=== PATIENT | female | born 1955 | race Caucasian/White ===

== ENCOUNTER → 2016-10-14 | Outpatient (CLI) | payer OTHER ==
[~2016-10-14] MED LIST: CLON1TAB3 PO; CYAN100020 SL; DOXY25TA PO; GLC5 PO; LEVO1TAB PO; LIDO4GEL3 TD; SERT1TAB71 PO; VTMD1000 PO; ZINC50TA3 PO
[2016-10-14 12:53] LABS: URINE APPEARANCE CLOUDY (CLEAR); URINE BILIRUBIN NEG (NEG); URINE COLOR YELLOW; URINE EPITHELIAL CELL AUTO >30 /lpf (0-5); URINE NITRITE NEG (NEG); URINE SPECIFIC GRAVITY 1.019 (1.000-1.030); UROBILINOGEN NEG (NEG); ZZUR CULT IF INDIC CLEAN CATCH NO
[2016-10-14 12:56] LABS: MANUAL MICROSCOPIC REQUIRED? NO; REVIEW REQ? NO
[2016-10-14 12:57] LABS: ALT/SGPT 38 U/L (12-78); AST/SGOT 36 U/L (15-37); BLOOD UREA NITROGEN 10 mg/dl (7-18); BUN/CREATININE RATIO 13.2 (10-20); CALCIUM 9.4 mg/dl (8.5-10.1); CARBON DIOXIDE 21 mmol/L (21-32); CHLORIDE 105 mmol/L (98-107); CHOLESTEROL 169 mg/dl (0-200); CREATININE 0.74 mg/dl (0.60-1.20); GLUCOSE 131 mg/dl (70-99); POTASSIUM 4.2 mmol/L (3.5-5.1); SODIUM 140 mmol/L (136-145)
[2016-10-14 13:07] LABS: ALB/GLOB RATIO 0.8 (0.9-2); ALKALINE PHOSPHATASE 74 U/L (45-117); CHOLESTEROL/HDL RATIO 3.7; HDL CHOLESTEROL 46 mg/dl; LDL CHOLESTEROL CALCULATED 97 mg/dl; TRIGLYCERIDES 129 mg/dl (0-150); VERY LOW DENSITY LIPOPROT CALC 26 mg/dl
[2016-10-14 13:36] LABS: RATIO 6.4 mcg/mg (0-30.0)
[2016-10-14 13:54] LABS: ESTIMATED AVERAGE GLUCOSE 140 mg/dl; HA1C FLAG Normal (Normal)
== END | disposition home or self-care (01) ==
LOC: C.LABBFT 11:13
PROVIDERS: ATTEND Internal Medicine
DX: E11.65 Type 2 diabetes mellitus with hyperglycemia (principal); E03.9 Hypothyroidism, unspecified

== ENCOUNTER → 2016-12-02 | Outpatient (CLI) | payer OTHER ==
--- NOTE | 2016-12-02 15:44 | MAMMOGRAPHY REPORT ---
BILATERAL DIGITAL DIAGNOSTIC MAMMOGRAM TOMOSYNTHESIS WITH CAD AND TARGETED RIGHT ULTRASOUND: 7 CLINICAL HISTORY: 61-year-old woman who presented with pain with palpation in the lateral right [address]. She describes a "stringy" feeling to the tissue. Family history of breast cancer = maternal au nt. Also due for annual bilateral screening mammography. TECHNIQUE: Bilateral CC and MLO to the digital and tomosynthesis images, spot magnification right CC , ML and spot compression left MLO tomosynthesis images were obtained. Current study was also evalu ated with a Computer Aided Detection (CAD) system. COMPARISON: Comparison is made to exam dated: 01/02/2014 mammogram - [facility] [place]. BREAST COMPOSITION: There are scattered areas of fibroglandular density in both breasts. FINDINGS: A square-shaped marker was placed overlying the upper outer posterior right breast, denoti ng the area of pain pointed out by the patient. There is no obvious mass, architectural distortion or suspicious calcifications in the area of concern. There are a few benign rim calcifications scat tered in the breast. However, there is a possible new clustered microcalcifications in the upper ou ter quadrant of the right breast, for which additional spot magnification views were obtained. On t he spot magnification views, there are round and punctate loosely grouped microcalcifications that m ost likely represent benign fibrocystic changes. The larger round calcifications are stable compari ng to the 2013 exam. However, the fainter calcifications are increased in conspicuity and a short i nterval follow-up diagnostic mammogram is recommended to ensure stability in 6 months. No other obv ious mass, focal area of architectural distortion or suspicious microcalcifications are identified i n the right breast. There is questionable architectural distortion in the anterior left breast, along the posterior nipp le line on the MLO view for which an additional spot compression left MLO tomosynthesis view was obt ained. The questionable distortion effaces with this additional view and most likely represented ov erlapping fibrolinear markings. Targeted ultrasound was performed in the area of pain pointed out by the patient, within the 8:00, 9 :00, 10:00 and 11:00 axes of the right breast. Throughout the area of concern, normal fibroglandula r tissue is seen without a discrete solid or cystic mass. In the left retroareolar breast, 2:00 to 4:00 and 8:00 through 10:00 axes, normal fibroglandular tissue is seen without a discrete solid or c ystic mass. IMPRESSION: ACR-BI-RADS CATEGORY 3: PROBABLY BENIGN, TARGETED ULTRASOUND ACR-BI-RADS CATEGORY 3: MI OBABLY BENIGN 1. There is no suspicious mammographic or targeted sonographic abnormality to explain the right lat eral nonfocal mastalgia. Therefore, clinical follow-up is recommended. 2. There are 2 loose groupings of round and punctate microcalcifications in the upper outer quadran t of the right breast, some of which are increased in conspicuity compared to the 01/02/2014 mammogr ams. Although these microcalcifications could represent benign fibrocystic changes, a short interva l follow-up diagnostic mammogram including spot magnification views is recommended to ensure stabili ty in 6 months. 3. Questionable architectural distortion in the anterior left breast effaces with an additional spo t compression tomosynthesis view and there is no suspicious sonographic correlate. This most likely represented normal overlapping fibrolinear markings. These results and recommendations were discussed with the patient at the time of the exam. Approximately 10% of breast cancers are not detected with mammography. A negative mammographic repor t should not delay biopsy if a clinically suggestive mass is present. Arleen Balbuena M.D. ay/:12/02/2016 14:46:39 Budget And Policy Analyst: Kia RUIZ(R)(M), [facility] [place] letter sent: Follow Up Recommended 3 BI-RADS Code: ACR-BI-RADS Category 3: Probably Benign Ultrasound BI-RADS: ACR-BI-RADS Category 3: P robably Benign
== END | disposition home or self-care (01) ==
LOC: C.MAMM 08:57
PROVIDERS: ATTEND Physician Assistant Medical
DX: N64.4 Mastodynia (principal); R92.0 Mammographic microcalcification found on diagnostic imaging of breast

== ENCOUNTER → 2016-12-29 | Outpatient (CLI) | payer OTHER ==
[2016-12-29 17:24] LABS: BASO % 1.1 %; BASO ABS # 0.07 K/uL (0-0.2); COMPLETE YES; EOS % 4.5 %; HEMATOCRIT 41.9 % (37-47); IG% 0.2 %; LYMPH % 33.9 %; LYMPH ABS # 2.11 K/uL (1.2-3.4); MEAN CELL VOLUME 90.7 fL (80-100); MEAN CORPUSCULAR HGB CONC 34.1 g/dl (32-36); MEAN PLATELET VOLUME 10.2 fL (7.4-10.4); MONO % 5.5 %; NEUT % 54.8 %; PLATELET COUNT 255 K/uL (130-400); RED BLOOD COUNT 4.62 M/uL (4.2-5.4); WHITE BLOOD COUNT 6.22 K/uL (4.8-10.8)
[2016-12-29 17:45] LABS: ALT/SGPT 29 U/L (12-78); AST/SGOT 21 U/L (15-37); BLOOD UREA NITROGEN 9 mg/dl (7-18); BUN/CREATININE RATIO 12.5 (10-20); CALCIUM 8.9 mg/dl (8.5-10.1); CARBON DIOXIDE 25 mmol/L (21-32); CHLORIDE 106 mmol/L (98-107); CREATININE 0.73 mg/dl (0.60-1.20); GLUCOSE 152 mg/dl (70-99); POTASSIUM 4.1 mmol/L (3.5-5.1); SODIUM 140 mmol/L (136-145)
[2016-12-29 17:54] LABS: ALB/GLOB RATIO 0.8 (0.9-2); ALKALINE PHOSPHATASE 77 U/L (45-117); CHOLESTEROL 174 mg/dl (0-200); CHOLESTEROL/HDL RATIO 3.3; HDL CHOLESTEROL 53 mg/dl; LDL CHOLESTEROL CALCULATED 100 mg/dl; TRIGLYCERIDES 105 mg/dl (0-150); VERY LOW DENSITY LIPOPROT CALC 21 mg/dl
[2016-12-30 06:09] LABS: ESTIMATED AVERAGE GLUCOSE 128 mg/dl; HA1C FLAG Normal (Normal)
== END | disposition home or self-care (01) ==
LOC: C.LABBFT 11:41
PROVIDERS: ATTEND Internal Medicine
DX: E11.65 Type 2 diabetes mellitus with hyperglycemia (principal); E03.9 Hypothyroidism, unspecified; E78.5 Hyperlipidemia, unspecified

== ENCOUNTER → 2016-12-31 | Outpatient (CLI) | payer OTHER | END | disposition home or self-care (01) | LOC: C.PAPS 08:20 | PROVIDERS: ATTEND Internal Medicine | DX: Z12.4 Encounter for screening for malignant neoplasm of cervix (principal); Z11.51 Encounter for screening for human papillomavirus (HPV) ==

== ENCOUNTER → 2017-01-21 | Outpatient (CLI) | payer OTHER ==
[~2017-01-21] MED LIST changes: +OPTIRAY 320 IV PRN
--- NOTE | 2017-01-21 10:12 | DIAGNOSTIC IMAGING REPORT ---
MRCP CLINICAL HISTORY: Family history of pancreatic cancer. COMPARISON STUDY: Abdominal ultrasound dated 10/26/2015. TECHNIQUE: Abdominal MRCP is performed utilizing various T2-weighted sequences in the axial and coronal planes. IV contrast was not administered for this examination. 3-D reformats are created and assessed. FINDINGS: The gallbladder is surgically absent. There is mild central intrahepatic biliary ductal dilatation, likely on a postoperative basis. There is smooth dilatation of the common bile duct which measures up to 9 mm. There are no filling defects identified to suggest choledocholithiasis. The pancreatic duct is normal in caliber. There is no pleural effusion identified. There is a trace pericardial effusion. A small hiatal hernia is noted. The partially evaluated hepatic, splenic, and pancreatic parenchyma is grossly normal. The kidneys and adrenal glands are normal as visualized. There is trace perihepatic free fluid. No upper abdominal lymphadenopathy is seen. The abdominal aorta is normal in caliber. IMPRESSION: 1. Status post cholecystectomy. 2. There is mild intra and extrahepatic biliary ductal dilatation, likely related to previous surgery. 3. There is no evidence of choledocholithiasis. 4. Trace perihepatic free fluid. Dictated: 01/21/2017 8:42 AM Transcribed: 01/21/2017 10:12 AM JUSTEN_Gavin Electronically signed by: William Baker M.D. 01/21/2017 10:27 AM Dictated Date/Time: 01/21/2017 8:42 AM
--- NOTE | 2017-01-21 11:18 | DIAGNOSTIC IMAGING REPORT ---
ABDOMEN AND PELVIS CT WITH IV AND ORAL CONTRAST CT DOSE: 724.91 mGy.cm HISTORY: Cancer screening Z12.9 Screening for cancer TECHNIQUE: Multiaxial CT images of the abdomen and pelvis were performed following the use of intravenous and oral contrast. COMPARISON STUDY: None. FINDINGS: Lung bases are clear. Liver is uniform in appearance. Prior cholecystectomy. Spleen pancreas are within normal limits. Kidneys enhance uniformly. There is no evidence for hydronephrosis. Bowel pattern is nonobstructive throughout. . Bladder is midline. No significant abdominal pelvic or inguinal adenopathy. IMPRESSION: Negative study status post cholecystectomy Electronically signed by: Rafael Flores M.D. 01/21/2017 11:17 AM Dictated Date/Time: 01/21/2017 11:14 AM
== END | disposition home or self-care (01) ==
LOC: C.MRI 07:33
PROVIDERS: ATTEND Physician Assistant Medical
DX: Z12.9 Encounter for screening for malignant neoplasm, site unspecified (principal); Z80.0 Family history of malignant neoplasm of digestive organs; Z90.49 Acquired absence of other specified parts of digestive tract

== ENCOUNTER → 2017-03-23 | Outpatient (CLI) | payer OTHER ==
[~2017-03-23] MED LIST changes: -OPTIRAY 320 IV PRN
[2017-03-23 12:44] LABS: THYROID STIMULATING HORMONE 19.1 uIu/ml (0.300-4.500)
[2017-03-25 11:33] LABS: CREATININE UR 138 MG/DL (20-320); GAMMA GLOBULIN 1.3 G/DL (0.8-1.7); TOTAL PROTEIN 7.4 G/DL (6.2-8.3)
== END | disposition home or self-care (01) ==
LOC: C.LABBFT 09:14
PROVIDERS: ATTEND Internal Medicine
DX: E03.9 Hypothyroidism, unspecified (principal); D89.2 Hypergammaglobulinemia, unspecified

== ENCOUNTER → 2017-07-29 | Outpatient (CLI) | payer OTHER ==
[2017-07-29 17:53] LABS: BLOOD UREA NITROGEN 7 mg/dl (7-18); GLUCOSE 202 mg/dl (70-99)
[2017-07-29 17:54] LABS: BUN/CREATININE RATIO 10.4 (10-20); CALCIUM 8.7 mg/dl (8.5-10.1); CARBON DIOXIDE 27 mmol/L (21-32); CHLORIDE 101 mmol/L (98-107); SODIUM 135 mmol/L (136-145)
[2017-07-29 18:02] LABS: ALB/GLOB RATIO 0.8 (0.9-2); ALKALINE PHOSPHATASE 85 U/L (45-117); ALT/SGPT 39 U/L (12-78); AST/SGOT 25 U/L (15-37); CHOLESTEROL 121 mg/dl (0-200); CHOLESTEROL/HDL RATIO 2.1; HDL CHOLESTEROL 59 mg/dl; LDL CHOLESTEROL CALCULATED 42 mg/dl; THYROID STIMULATING HORMONE 0.257 uIu/ml (0.300-4.500); TRIGLYCERIDES 102 mg/dl (0-150); VERY LOW DENSITY LIPOPROT CALC 20 mg/dl
[2017-07-30 05:15] LABS: ESTIMATED AVERAGE GLUCOSE 180 mg/dl; HA1C FLAG Normal (Normal)
== END | disposition home or self-care (01) ==
LOC: C.LABBFT 11:34
PROVIDERS: ATTEND Internal Medicine
DX: E78.5 Hyperlipidemia, unspecified (principal); E11.65 Type 2 diabetes mellitus with hyperglycemia; E03.9 Hypothyroidism, unspecified

== ENCOUNTER → 2017-10-01 | Outpatient (CLI) | payer OTHER | END | disposition home or self-care (01) | LOC: C.LABBFT 14:06 | PROVIDERS: ATTEND Internal Medicine | DX: R53.83 Other fatigue (principal) ==